=== PATIENT | male | born 1955 | race Caucasian/White ===

== ENCOUNTER 2016-11-26 07:30 | Day surgery (SDC) | payer OTHER ==
[2016-11-11 08:33] VITALS: BMI 38.0
--- NOTE | 2016-11-11 08:58 | PAT Medication Instructions ---
Service Date Nov 11, 2016. Current Home Medication List Albuterol (Ventolin Hfa), 2 PUFFS INH PRN PRN for Wheezing Cetirizine Hcl (Zyrtec Allergy), 10 MG PO QAM Cholecalciferol (Vitamin D3), 1 TAB PO QAM Clobetasol Propionate (Clobetasol Propionate), 1 APPLN TOP BID PRN for PRN Fluticasone Furoate-Vilanterol (Breo Ellipta), 1 PUFF INH QAM Fluticasone Propionate (Nasal) (Flonase), 2 SPRAYS NA HS Hydrocortisone 2.5% (Rectal) (Anusol-Hc 2.5%), 1 APPLN TOP BID PRN for PRN Meloxicam (Mobic), 7.5 MG PO QAM Montelukast Sodium (Singulair), 10 MG PO QAM [place]-3 Fatty Acids (Fish Oil), 2 CAP PO QAM Omeprazole (Prilosec), 20 MG PO QAM Polyethylene Glycol-Propylene (Systane), 1 DROPS OP QID PRN for PRN Medication Instructions For Your Scheduled Surgery - Hold the following medications 2 weeks prior to surgery: [place]-3 Fatty Acids (Fish Oil), 2 CAP PO QAM - Hold the following medications 24 hours prior to surgery: Hydrocortisone 2.5% (Rectal) (Anusol-Hc 2.5%), 1 APPLN TOP BID PRN for PRN Clobetasol Propionate (Clobetasol Propionate), 1 APPLN TOP BID PRN for PRN - Hold the following medications the morning of surgery: Cetirizine Hcl (Zyrtec Allergy), 10 MG PO QAM Cholecalciferol (Vitamin D3), 1 TAB PO QAM Meloxicam (Mobic), 7.5 MG PO QAM (not told to stop by surgeon) - Take the following medications the morning of surgery with a sip of water: Polyethylene Glycol-Propylene (Systane), 1 DROPS OP QID PRN for PRN Omeprazole (Prilosec), 20 MG PO QAM Montelukast Sodium (Singulair), 10 MG PO QAM Fluticasone Furoate-Vilanterol (Breo Ellipta), 1 PUFF INH QAM Albuterol (Ventolin Hfa), 2 PUFFS INH PRN PRN for Wheezing (if needed you can use; also bring with you to hospital on day of surgery) - Take the following medications as scheduled the night before surgery: Polyethylene Glycol-Propylene (Systane), 1 DROPS OP QID PRN for PRN Fluticasone Propionate (Nasal) (Flonase), 2 SPRAYS NA HS Albuterol (Ventolin Hfa), 2 PUFFS INH PRN PRN for Wheezing If you have any questions please call us at [phone] or [phone] ( [place]) or [phone]
--- NOTE | 2016-11-11 09:42 | DIAGNOSTIC IMAGING REPORT ---
CHEST PREADMISSION(PA/LAT) CLINICAL HISTORY: Preoperative evaluation. COMPARISON STUDY: Chest radiograph November 18, 2013. FINDINGS: Lung volumes are normal. Lungs are clear. There is no evidence of pulmonary edema. Borderline cardiomegaly is unchanged. There is no pneumothorax or pleural effusion. Mild asymmetric right apical opacity is unchanged and favors scarring. IMPRESSION: No acute cardiopulmonary findings. Electronically signed by: Ant Chandler M.D. 11/11/2016 9:39 AM Dictated Date/Time: 11/11/2016 9:38 AM
[2016-11-11 10:19] LABS: BASO % 0.6 %; BASO ABS # 0.04 K/uL (0-0.2); COMPLETE YES; EOS % 3.8 %; HEMATOCRIT 47.5 % (42-52); IG% 0.6 %; LYMPH % 28.3 %; LYMPH ABS # 2.02 K/uL (1.2-3.4); MEAN CELL VOLUME 88.1 fL (80-100); MEAN CORPUSCULAR HGB CONC 35.2 g/dl (32-36); MEAN PLATELET VOLUME 9.9 fL (7.4-10.4); MONO % 9.7 %; PLATELET COUNT 251 K/uL (130-400); RED BLOOD COUNT 5.39 M/uL (4.7-6.1); WHITE BLOOD COUNT 7.13 K/uL (4.8-10.8)
[2016-11-11 10:35] LABS: BUN/CREATININE RATIO 13.1 (10-20); CREATININE 0.96 mg/dl (0.60-1.40); POTASSIUM 4.2 mmol/L (3.5-5.1)
[~2016-11-26] VITALS: Ht 167.6 cm; Wt 106.0 kg
[~2016-11-26 07:30] MED LIST: ALBUAER2 INH; CETI10CA PO; CHOL1000 PO; CLBPO15 TOP; FLUT0.0529; FLUT1INH INH; HYDR2.5C37 TOP; LACTATED RINGER'S 1000ML 1,000 ML IV SCH; MELO7.5T5 PO; MONT1TAB3 PO; OMEG10002 PO; OMEP20CA9 PO; POLYSOL4 OP
[2016-11-26 08:09] VITALS: BP 147/81; PULSE 76; TEMP 36.7; O2SAT 97; Ht 167.6 cm; Wt 106.0 kg
[2016-11-26] MEDS ORDERED: DEXAMETHASONE SOD INJ 4 MG/ML VIAL ONE (09:03)
[2016-11-26] MEDS ORDERED: ONDANSETRON INJ 2 MG/ML 2 ML VIAL ONE (09:03)
[2016-11-26] MEDS ORDERED: LIDOCAINE HCL 2% 2 ML VIAL (20MG/ML) ONE (09:03)
[2016-11-26] MEDS ORDERED: PROPOFOL IV EMULSION 10 MG/ML 20 ML VIAL IV ONE (09:03)
[2016-11-26] MEDS ORDERED: FENTANYL CITRATE INJ 50 MCG/1 ML 2 ML VIAL ONE ×2 (09:03→09:07)
[2016-11-26] MEDS ORDERED: MIDAZOLAM HCL 1 MG/ML 2ML VIAL ONE (09:03)
[2016-11-26] MEDS ORDERED: ROCURONIUM BROMIDE 10 MG/ML 5 ML VIAL ONE (09:07)
--- NOTE | 2016-11-26 09:40 | History & Physical Bridge Note ---
H&P Re-Evaluation Bridge Note: I have examined the patient, reviewed the History & Physical and in the interval since the performance of the History & Physical I have noted the following changes of clinical significance: No changes noted pt marked, family bedside
[2016-11-26] MEDS ORDERED: BACITRACIN 50000 UNIT VIAL ONE (10:12)
[2016-11-26] MEDS: BUPIVACAINE 0.5 % 5 MG/1 ML MPF 30ML VIAL ONE (10:12)
[2016-11-26] MEDS ORDERED: PHENYLEPHRINE 100MCG/ML 5ML SYR IV PRN (10:45)
[2016-11-26] MEDS ORDERED: EpHEDrine SULFATE INJ 50 MG/ML AMP IV PRN (10:45)
[2016-11-26] MEDS ORDERED: ONDANSETRON INJ 2 MG/ML 2 ML VIAL IV PRN ×2 (10:45→12:15)
[2016-11-26] MEDS ORDERED: ATROPINE SULFATE 0.1 MG/ML 5ML SYR IV PRN (10:45)
[2016-11-26] MEDS ORDERED: KETOROLAC TROMETHAMINE 30 MG/ML VIAL IV. PRN (10:45)
[2016-11-26] MEDS ORDERED: CEFAZOLIN SOD 1 GM VIAL ONE (10:53)
[2016-11-26] MEDS ORDERED: LARYING-O-JET KIT (LTA) EXT ONE ×2 (10:56)
[2016-11-26] MEDS ORDERED: NEOSTIGMINE METHYLSULFATE 5 MG/5 ML SYR ONE (11:06)
[2016-11-26] MEDS ORDERED: GLYCOPYRROLATE INJ 0.2 MG/ML VIAL ONE (11:06)
[2016-11-26] MEDS ORDERED: PHENYLEPHRINE 100MCG/ML 5ML SYR ONE (11:06)
[2016-11-26] MEDS ORDERED: LABETALOL HCL IV 5 MG/ML 20ML IV ONE (11:13)
[2016-11-26] MEDS ORDERED: LACTATED RINGER'S 1000ML 1,000 ML IV SCH (12:03)
--- NOTE | 2016-11-26 12:07 | Discharge Instructions ---
Discharge Instructions Date of Service Nov 26, 2016. Visit Reason for Visit: Left Inguinal Hernia Discharge Discharge Diagnosis / Problem: hernia repair with mesh Discharge Goals Goal(s): Decrease discomfort Activity Recommendations Activity Limitations: as noted below Lifting Limitations: no more than 10 pounds Shower/Bathe: tomorrow Driving or Machine Use: resume 3 days after discharge (if not taking Percocet) Anesthesia . Post Anesthesia Instructions: If you have had General Anesthesia or IV Sedation: * Do not drive today. * Resume driving when surgeon permits. * Do not make important decisions or sign legal documents today. * Call surgeon for: 1. Temperature elevations greater than 101 degrees F. 2. Uncontrollable pain. 3. Excessive bleeding. 4. Persistent nausea and vomiting. 5. Medication intolerance (nausea, vomiting or rash). * For nausea and vomiting use only clear liquids such as: tea, soda, bouillon until nausea subsides, then gradually increase diet as tolerated. * If you have any concerns or questions, call your surgeon's office. If physician is unavailable and it is an emergency, call 911 or go to the nearest emergency room. . Instructions / Follow-Up Instructions / Follow-Up Dr. Arreola in 1 week, call [phone] to schedule or for any questions Ice left groin off and on alternating every 20 minutes until bedtime Diet Recommendations Recommended Home Diet: no limitations Pending Studies Studies pending at discharge: no Medical Emergencies . Who to Call and When: Medical Emergencies: If at any time you feel your situation is an emergency, please call 911 immediately. . Non-Emergent Contact Non-Emergency issues call your: Surgeon Call Non-Emergent contact if: you have a fever, temperature is above 101.5, your pain is not controlled, wound has increased redness . . "Provider Documentation" section prepared by Ever Mckay. . [place] Drug Monitoring Program Search Results: no issues identified
[2016-11-26] MEDS ORDERED: OXYC-57 PO (12:08)
[2016-11-26] MEDS ORDERED: OXYCODONE/ACETAMINOPHEN 5-325 TAB PO PRN (12:15)
[2016-11-26] MEDS ORDERED: MoRPHine SULFATE 2 MG/ML CARP IV PRN (12:15)
[2016-11-26] MEDS: HYDROmorphone INJ 2 MG/ML SYR/VIAL IV PRN ×8 (12:24→13:15)
--- NOTE | 2016-11-26 12:59 | OPERATIVE REPORT ---
DATE OF OPERATION: 11/26/2016 PREOPERATIVE DIAGNOSIS: Left inguinal hernia. POSTOPERATIVE DIAGNOSIS: Left indirect inguinal hernia, large lipoma of the cord. PROCEDURE: Open repair, left indirect inguinal hernia and excision lipoma of the cord. SURGEON: Dr. Arreola. PREPRESS TECHNICIAN: Chaparro Mckay PA-C. OPERATION AND FINDINGS: SUMMARY: After induction of general endotracheal anesthesia, the patient's left lower quadrant prepped Betadine scrubbing solution and properly draped. Systemic antibiotics was given. We used preemptive local analgesia 0.5% Marcaine to infiltrate 2 fingerbreadths anterior superior iliac crest when subfascial to the external oblique. The patient was quite obese. We then made an incision parallel to the inguinal ligament, deepened through subcutaneous tissue onto the external oblique. We dissected down onto the external oblique. We were actually almost at the shelving portion where we could identify. The patient had as we went down to the external ring incarcerated tissue at the external ring. We then used more local underneath the external oblique which we opened along the course of its fibers. We did not identify any nerve in the field. We used hemostats to elevate the external oblique fascia superiorly and inferiorly. We could see the external ring. The patient had a significant amount of incarcerated fatty tissue. We elevated the cord and its structure with a Lb drain and then we were able to free up this lipomatous tissue that was going along the cord structures down to the internal ring, resected and ligated at the base twice with 2-0 silk suture. We looked for an indirect sac which we easily identified that probably had a sliding component of fatty tissue in the sac; therefore, I did not resect it and we returned everything into the internal ring area. We avoided the spermatic cord and vas by placing a Lb drain. We reconstructed the internal ring using 3-0 interrupted suture just to get the tissue out of the way and then we used a Marlex plug technique and patch technique. We made a plug about a cm and a half in diameter and placed it in the internal ring centrally. A silk suture was used to control the plug as we then were able then to bring up a sheet of Marlex mesh up onto the field and sutured on with 2-0 nylon. The symphysis pubis, shelving portion under the ligament, above the conjoined tendon to reconstruct the internal ring that could only accommodate the tip of a hemostat. When we were closing the 2 limbs of the mesh as we brought it together to reconstruct the internal ring we then took a bite of the plug that we had placed in the internal ring area to secure to the patch. The area was checked for hemostasis and appeared satisfactory. More local was used and closed the external oblique on top of the mesh and the cord with 3-0 interrupted silk, 3-0 Dexon and donis for skin edges. Dressing was applied. The procedure was tolerated well by the patient. Estimated blood loss approximately 5 mL. The patient was taken to recovery room in good condition. I attest to the content of the Intraoperative Record and any orders documented therein. Any exceptio ns are noted below.
--- NOTE | 2016-11-26 13:35 | Anesthesiology Progress Note ---
Anesthesia Post Op Note Date & Time Nov 26, 2016 at 13:35 Vital Signs Pain Intensity: 5 Vital Signs Past 12 Hours Date Time Temp Pulse Resp B/P Pulse Ox O2 Delivery O2 Flow Rate FiO2 11/26/16 13:12 73 13 97 11/26/16 13:12 72 13 11/26/16 13:10 127/94 11/26/16 13:07 67 12 98 11/26/16 13:07 65 14 11/26/16 13:05 134/91 11/26/16 13:02 74 12 94 11/26/16 13:02 74 13 11/26/16 13:00 135/98 11/26/16 12:57 71 14 96 11/26/16 12:57 70 14 11/26/16 12:55 163/87 11/26/16 12:52 67 13 11/26/16 12:52 65 13 94 11/26/16 12:51 152/93 11/26/16 12:47 79 12 98 11/26/16 12:47 79 12 11/26/16 12:46 67 13 11/26/16 12:46 68 13 96 11/26/16 12:45 146/100 11/26/16 12:41 67 13 11/26/16 12:41 68 13 95 11/26/16 12:40 137/106 11/26/16 12:36 66 15 99 11/26/16 12:36 66 15 11/26/16 12:35 163/94 11/26/16 12:31 70 14 99 11/26/16 12:31 71 14 11/26/16 12:30 161/98 11/26/16 12:26 67 14 156/101 98 11/26/16 12:26 68 14 11/26/16 12:21 73 14 11/26/16 12:21 73 14 99 11/26/16 12:20 187/104 11/26/16 12:17 155/97 11/26/16 12:16 79 9 99 11/26/16 12:16 79 9 11/26/16 12:15 160/114 11/26/16 12:15 160/114 11/26/16 12:13 73 16 11/26/16 12:13 73 16 166/95 97 11/26/16 12:13 73 16 166/95 97 11/26/16 12:13 73 16 11/26/16 12:11 138/101 11/26/16 12:11 138/101 11/26/16 12:08 78 10 99 11/26/16 12:08 78 10 11/26/16 12:08 78 10 11/26/16 12:08 78 10 99 11/26/16 12:07 137/98 11/26/16 12:07 137/98 11/26/16 12:06 135/102 11/26/16 12:06 135/102 11/26/16 12:04 147/90 11/26/16 12:04 147/90 11/26/16 12:03 88 11/26/16 12:03 36.4 84 14 147/90 99 Mask 10 11/26/16 12:03 88 97 11/26/16 12:03 88 11/26/16 12:03 88 97 11/26/16 08:09 36.7 76 18 147/81 97 Room Air Notes Mental Status: alert / awake / arousable, participated in evaluation Pt Amnestic to Procedure: Yes Nausea / Vomiting: adequately controlled Pain: adequately controlled Airway Patency, RR, SpO2: stable & adequate BP & HR: stable & adequate Hydration State: stable & adequate Anesthetic Complications: no major complications apparent
[2016-11-26 13:40] VITALS: BP 153/73; PULSE 74; TEMP 36.8; O2SAT 97
[2016-11-26 14:10] VITALS: BP 138/76; PULSE 82; TEMP 36.4; O2SAT 97
[2016-11-26 14:35] VITALS: BP 135/89; PULSE 88; TEMP 36.3; O2SAT 97
[2016-11-26 15:22] VITALS: BP 122/90; PULSE 87; TEMP 36.4; O2SAT 94
== END 2016-11-26 15:30 | disposition home or self-care (01) ==
LOC: C.ACU 07:30
PROVIDERS: ATTEND Surgery
DX: K40.90 Unilateral inguinal hernia, without obstruction or gangrene, not specified as recurrent (principal); D17.6 Benign lipomatous neoplasm of spermatic cord; J45.909 Unspecified asthma, uncomplicated; E78.5 Hyperlipidemia, unspecified; K21.9 Gastro-esophageal reflux disease without esophagitis; E03.9 Hypothyroidism, unspecified; G47.30 Sleep apnea, unspecified; Z86.010 Personal history of colon polyps; Z82.49 Family history of ischemic heart disease and other diseases of the circulatory system; Z83.3 Family history of diabetes mellitus; Z83.42 Family history of familial hypercholesterolemia

== ENCOUNTER → 2017-05-13 | Outpatient (CLI) | payer OTHER ==
[~2017-05-13] MED LIST changes: -LACTATED RINGER'S 1000ML 1,000 ML IV SCH; +OXYC-57 PO
--- NOTE | 2017-05-13 14:47 | DIAGNOSTIC IMAGING REPORT ---
ABDOMEN ULTRASOUND FOR HERNIA CLINICAL HISTORY: LEFT GROIN PAIN COMPARISON STUDY: None. FINDINGS: Real-time sonographic imaging of the left groin was performed. No evidence for left inguinal hernia. No fluid collections or masses within the left groin. IMPRESSION: No evidence for recurrent left inguinal hernia. Electronically signed by: Juni Aragon M.D. 05/13/2017 2:46 PM Dictated Date/Time: 05/13/2017 2:45 PM
== END | disposition home or self-care (01) ==
LOC: C.ULTRBC 14:23
PROVIDERS: ATTEND Physician Assistant
DX: R10.32 Left lower quadrant pain (principal); Z98.890 Other specified postprocedural states